=== PATIENT | female | born 1990 | race Two or more races ===

== ENCOUNTER 2022-08-28 21:08 | Emergency (ER) | payer MEDICAID ==
[~2022-08-28] VITALS: Ht 152.4 cm; Wt 60.0 kg
[2022-08-29] MEDS ORDERED: PERCT PO (00:36)
[2022-08-29] MEDS ORDERED: CEPH-558 PO (00:36)
[2022-08-29] MEDS ORDERED: OxyCODONE HCL/ACETAMINOPHEN 5-325 MG TABLET PO ONE (00:45)
[2022-08-29 00:55] VITALS: BP 116/63
== END 2022-08-29 01:15 | disposition home or self-care (01) ==
LOC: EMS 21:15
DX: S00.80XA Unspecified superficial injury of other part of head, initial encounter (principal); F17.210 Nicotine dependence, cigarettes, uncomplicated; X99.9XXA Assault by unspecified sharp object, initial encounter; Y93.89 Activity, other specified; Y92.89 Other specified places as the place of occurrence of the external cause; Y99.8 Other external cause status
CPT/HCPCS: 70360; 99283

== ENCOUNTER 2023-05-23 17:29 | Emergency (ER) | payer MEDICAID ==
[~2023-05-23] VITALS: Ht 157.5 cm; Wt 57.7 kg
[~2023-05-23 17:29] MED LIST: CEPH-558 PO; PERCT PO
[2023-05-23] MEDS ORDERED: CYSTEX PO (17:34)
[2023-05-23 18:31] LABS: BASOPHILS % (AUTO) 0.7 % (0.0-2.0); EOSINOPHILS % (AUTO) 1.3 % (1.0-6.0); HEMATOCRIT 38.2 % (36-46); HEMOGLOBIN 12.3 g/dL (12.0-16.0); LYMPHOCYTES # (AUTO) 2.1 K/uL (1.0-4.8); LYMPHOCYTES % (AUTO) 25.2 % (22.0-44.0); MEAN CORPUSCULAR HEMOGLOBIN 28.4 pg (26.0-34.0); MEAN CORPUSCULAR HGB CONC 32.1 G/dL (31.0-37.0); MEAN CORPUSCULAR VOLUME 89 fL (80-100); MONOCYTES # (AUTO) 0.6 K/uL (0.1-1.0); MONOCYTES % (AUTO) 7.5 % (2.0-9.0); NEUTROPHILS # (AUTO) 5.4 K/uL (1.8-7.7); NEUTROPHILS % (AUTO) 65.3 % (40.0-70.0); PLATELET COUNT (AUTO) 135 K/uL (150-450); RED BLOOD CELL COUNT(AUTO) 4.31 MIL/uL (4.00-5.20); RED CELL DISTRIBUTION WIDTH 13.9 % (11.5-14.5); WHITE BLOOD COUNT (AUTO) 8.2 K/uL (4.5-11.0)
[2023-05-23 18:40] LABS: ANION GAP 13 mmol/L (8-16); CALCIUM, TOTAL 8.9 mg/dL (8.8-10.5); CARBON DIOXIDE 23 mmol/L (22-29); CHLORIDE 100 mmol/L (98-107); CREATININE 0.79 mg/dL (0.60-1.30); GLOMERULAR FILTR. RATE CALC > 60 mL/min (>60); GLUCOSE,RANDOM 155 mg/dL (70-110); POTASSIUM 3.6 mmol/L (3.5-5.1); SODIUM SERUM 136 mmol/L (136-145); UREA NITROGEN, BLOOD 9 mg/dL (7-18)
[2023-05-23 18:51] LABS: ALANINE AMINOTRANSFERASE 30 U/L (12-78); ALBUMIN 3.5 g/dL (3.4-5.0); ALKALINE PHOSPHATASE 54 U/L (46-116); ASPARTATE AMINOTRANSFERASE 20 U/L (15-37); BILIRUBIN,TOTAL 0.1 mg/dL (0.1-1.0); HCG,QUANTITATIVE < 1 mIU/mL (0-6); LIPASE 21 U/L (16-77); TOTAL PROTEIN, SERUM 7.5 g/dL (6.4-8.2)
[2023-05-23 20:32] VITALS: BP 116/62; PULSE 82; RESP 15; TEMP 99.1
[2023-05-23 21:08] LABS: APPEARANCE,URINE HAZY (CLEAR); BILIRUBIN,URINE NEGATIVE (NEGATIVE); COLOR,URINE YELLOW (YELLOW); GLUCOSE, URINE (UA) NEGATIVE (NEGATIVE); KETONES,URINE NEGATIVE (NEGATIVE); LEUKOCYTE ESTERASE ,URINE LARGE (NEGATIVE); NITRATE,URINE NEGATIVE (NEGATIVE); OCCULT BLOOD,URINE TRACE (NEGATIVE); PH,URINE 6.5 (5.0-8.0); PROTEIN,URINE 30-70 mg/dL (NEGATIVE); SPECIFIC GRAVITIY, URINE 1.029 (1.003-1.030); UROBILINOGEN,URINE <=1.0 mg/dL (<=1.0)
[2023-05-23 21:28] LABS: SQUAMOUS EPITHELIAL CELL,UR Few /LPF (None Seen)
[2023-05-23 21:29] LABS: RBC,URINE 0-2 /HPF (0-2); WBC,URINE 26-50 /HPF (0-5)
[2023-05-23 21:30] LABS: BACTERIA,URINE Few /HPF (None Seen)
[2023-05-23] MEDS ORDERED: CEPHALEXIN MONOHYDRATE 500 MG CAPSULE PO ONE (23:15)
[2023-05-23] MEDS ORDERED: CEPH-558 PO (23:31)
== END 2023-05-23 23:37 | disposition home or self-care (01) ==
LOC: EMS 17:30
DX: N39.0 Urinary tract infection, site not specified (principal); F17.210 Nicotine dependence, cigarettes, uncomplicated
CPT/HCPCS: 80053; 81001; 83690; 84702; 85025; 87086; 87186; 93005; 99284